=== PATIENT | male | born 1960 | race Caucasian/White ===

== ENCOUNTER → 2020-11-14 | Outpatient (CLI) | payer OTHER ==
[~2020-11-14] MED LIST: ABILIFY 5 MG TAB5 MG PO; ALDACTONE 25MG25 MG PO; ASPIRIN81 MG PO; ATORVASTATIN CA40 MG PO; BUPRENORPHIN-N1 EACH SL; CLOPIDOGREL75 MG PO; COZAAR 50MG TAB50 MG PO; DIGOXIN125 MCG PO; GABAPENTIN800 MG PO; IBUPROFEN600 MG PO; IPRAT-ALBUT 0.5-3 ML NEB; KEPPRA 500 MG500 MG PO; KEPPRA750 MG PO; LASIX20 MG PO; LORTAB 7.5-3251 EACH PO; MEDROL DOSEPAK 24 MG PO; MEDROL4 MG PO; MYCOSTATIN CREA15 GM TOP; NAPROSYN500 MG PO; NEURONTIN800 MG PO; PLAQUENIL 200200 MG PO; PREDNISONE10 MG PO; PREDNISONE5 MG PO; PROVENTIL HFA6.7 GM INH; PULMICORT FLEX90 MCG INH; SUBOXONE 8 MG-1 EACH SL; TOPROL XL 50 MG50 MG PO; TRAZODONE HCL100 MG PO; ULTRAM50 MG PO; VITAMIN D31000 UNI1 PO
== END ==
LOC: CT 08:03
DX: R93.89 Abnormal findings on diagnostic imaging of other specified body structures (principal); R91.8 Other nonspecific abnormal finding of lung field; J18.9 Pneumonia, unspecified organism; J98.11 Atelectasis
CPT/HCPCS: 36415; 71260; 82565; Q9963

== ENCOUNTER 2020-12-10 16:56 | Emergency (ER) | payer OTHER ==
[~2020-12-10 16:56] MED LIST changes: -ULTRAM50 MG PO
[2020-12-10] MEDS ORDERED: ULTRAM50 MG PO (18:41)
== END 2020-12-10 19:25 | disposition home or self-care (01) ==
LOC: ER1 16:56
DX: M25.552 Pain in left hip (principal)
CPT/HCPCS: 73502; 81001; 87086; 96372; 99283; J1170

== ENCOUNTER 2021-07-11 15:35 | Emergency (ER) | payer OTHER ==
[~2021-07-11 15:35] MED LIST changes: +ULTRAM50 MG PO
[2021-07-11 18:23] LABS: HEMOGLOBIN 12.8 gm/dl (14.0-17.5); RED BLOOD COUNT 4.16 M/UL (4.20-5.50); WHITE BLOOD COUNT 7.8 K/UL (4.5-11.0)
[2021-07-11 18:45] LABS: BUN/CREATININE RATIO 25 (0-10)
[2021-07-11] MEDS ORDERED: PREDNISONE 10 M10 MG PO (23:22)
[2021-07-11] MEDS ORDERED: IPRAT-ALBUT 0.5-3 ML INH (23:36)
== END 2021-07-11 23:47 | disposition home or self-care (01) ==
LOC: ER1 15:35
PROVIDERS: Physician Assistant Medical
DX: M06.872 Other specified rheumatoid arthritis, left ankle and foot (principal); C34.90 Malignant neoplasm of unspecified part of unspecified bronchus or lung; M06.871 Other specified rheumatoid arthritis, right ankle and foot; M06.831 Other specified rheumatoid arthritis, right wrist; M25.59 Pain in other specified joint; M06.8A Other specified rheumatoid arthritis, other specified site; F17.210 Nicotine dependence, cigarettes, uncomplicated; I25.2 Old myocardial infarction; J44.9 Chronic obstructive pulmonary disease, unspecified; Z20.822 Contact with and (suspected) exposure to COVID-19
CPT/HCPCS: 0240U; 71045; 80053; 84550; 85025; 85652; 86140; 94664; 96374; 96375; 99284; J1885; J2930

== ENCOUNTER 2021-07-31 13:01 | Inpatient (IN) | payer OTHER ==
[~2021-07-31] VITALS: Ht 185.4 cm; Wt 74.8 kg
[~2021-07-31 13:01] MED LIST changes: -BUPRENORPHIN-N1 EACH SL; +IPRAT-ALBUT 0.5-3 ML INH; +PREDNISONE 10 M10 MG PO
[2021-07-31 19:26] LABS: BUN/CREATININE RATIO 33 (0-10)
[2021-07-31 19:30] LABS: HEMOGLOBIN 12.6 gm/dl (14.0-17.5); RED BLOOD COUNT 4.14 M/UL (4.20-5.50); WHITE BLOOD COUNT 7.1 K/UL (4.5-11.0)
[2021-08-01] MEDS ORDERED: BUPRENORPHIN-N1 EACH SL (01:42)
[2021-08-01 05:42] LABS: HEMOGLOBIN 12.4 gm/dl (14.0-17.5); RED BLOOD COUNT 4.11 M/UL (4.20-5.50); WHITE BLOOD COUNT 5.4 K/UL (4.5-11.0)
[2021-08-01 05:59] LABS: BUN/CREATININE RATIO 26 (0-10)
[2021-08-01] MEDS ORDERED: IBUPROFEN800 MG PO (12:57)
[2021-08-01] MEDS ORDERED: ASPIRIN CHEWABL81 MG PO (12:57)
[2021-08-01] MEDS ORDERED: IPRAT-ALBUT 0.5-3 ML INH (12:58)
[2021-08-01] MEDS ORDERED: PROAIR HFA8.5 GM INH (12:58)
--- NOTE | 2021-08-01 13:51 | NUR ---
DR. BARAJAS INFORMED RN THAT PATIENT COULD HAVE TELEMETRY REMOVED WHENHE WENT TO GET HIS MRI DONE.
[2021-08-02 04:57] LABS: HEMOGLOBIN 13.2 gm/dl (14.0-17.5); RED BLOOD COUNT 4.34 M/UL (4.20-5.50); WHITE BLOOD COUNT 5.3 K/UL (4.5-11.0)
[2021-08-02 05:17] LABS: BUN/CREATININE RATIO 17 (0-10)
[2021-08-03 05:39] LABS: HEMOGLOBIN 13.7 gm/dl (14.0-17.5); RED BLOOD COUNT 4.49 M/UL (4.20-5.50)
[2021-08-03 05:50] LABS: WHITE BLOOD COUNT 6.7 K/UL (4.5-11.0)
[2021-08-03 06:03] LABS: BUN/CREATININE RATIO 22 (0-10)
[2021-08-04 08:04] LABS: RED BLOOD COUNT 4.61 M/UL (4.20-5.50); WHITE BLOOD COUNT 6.3 K/UL (4.5-11.0)
[2021-08-04 08:57] LABS: BUN/CREATININE RATIO 28 (0-10)
[2021-08-05 05:49] LABS: RED BLOOD COUNT 3.94 M/UL (4.20-5.50); WHITE BLOOD COUNT 4.4 K/UL (4.5-11.0)
[2021-08-05 06:16] LABS: BUN/CREATININE RATIO 26 (0-10)
--- NOTE | 2021-08-05 16:01 | NUR ---
PT MOVES AROUND AND DECLINED HIS SCUDS.
[2021-08-06 06:40] LABS: HEMOGLOBIN 12.2 gm/dl (14.0-17.5); RED BLOOD COUNT 4.01 M/UL (4.20-5.50); WHITE BLOOD COUNT 3.9 K/UL (4.5-11.0)
[2021-08-06 07:15] LABS: BUN/CREATININE RATIO 22 (0-10)
[2021-08-08 07:29] LABS: BUN/CREATININE RATIO 19 (0-10)
[2021-08-08] MEDS ORDERED: CEFEPIME 22 GM/100 M IV (09:19)
[2021-08-08] MEDS ORDERED: VANCOMYCIN1.25 GM/12 IV (09:19)
== END 2021-08-08 12:54 | disposition home or self-care (01) | DRG 552 ==
LOC: ER1 13:01 → CDU 20:52 → MED SURG 4 20:52
PROVIDERS: Emergency Medicine; Internal Medicine; Physician Assistant; ADMIT Internal Medicine
PROC: 02HV33Z Insertion of Infusion Device into Superior Vena Cava, Percutaneous Approach (ICD-10-PCS; principal; 2021-08-07)
PROC: B548ZZA Ultrasonography of Superior Vena Cava, Guidance (ICD-10-PCS; 2021-08-07)
DX: M46.47 Discitis, unspecified, lumbosacral region (principal); S32.039A Unspecified fracture of third lumbar vertebra, initial encounter for closed fracture; S32.10XA Unspecified fracture of sacrum, initial encounter for closed fracture; Z20.822 Contact with and (suspected) exposure to COVID-19; F11.20 Opioid dependence, uncomplicated; E87.1 Hypo-osmolality and hyponatremia; S32.049A Unspecified fracture of fourth lumbar vertebra, initial encounter for closed fracture; S32.059A Unspecified fracture of fifth lumbar vertebra, initial encounter for closed fracture; I25.10 Atherosclerotic heart disease of native coronary artery without angina pectoris; F17.210 Nicotine dependence, cigarettes, uncomplicated; M46.46 Discitis, unspecified, lumbar region; B19.20 Unspecified viral hepatitis C without hepatic coma; M19.90 Unspecified osteoarthritis, unspecified site; J44.9 Chronic obstructive pulmonary disease, unspecified; M06.9 Rheumatoid arthritis, unspecified; Z79.01 Long term (current) use of anticoagulants; Z79.82 Long term (current) use of aspirin; V29.88XA Motorcycle rider (driver) (passenger) injured in other specified transport accidents, initial encounter; Z80.9 Family history of malignant neoplasm, unspecified; I25.2 Old myocardial infarction; V49.9XXA Car occupant (driver) (passenger) injured in unspecified traffic accident, initial encounter
CPT/HCPCS: 36415; 72125; 72128; 72131; 72148; 72170; 73030; 80048; 80053; 80202; 80307; 85025; 85027; 85652; 86140; 87040; 94640; 94760; 96365; 96366; 96375; 99285; C1751; J0692; J1650; J1885; J2543; J3370; J7030; J7070; U0002

== ENCOUNTER 2021-12-03 10:50 | Emergency (ER) | payer OTHER ==
[~2021-12-03] VITALS: Ht 185.4 cm; Wt 74.8 kg
[~2021-12-03 10:50] MED LIST changes: +ASPIRIN CHEWABL81 MG PO; +BUPRENORPHIN-N1 EACH SL; +CEFEPIME 22 GM/100 M IV; +IBUPROFEN800 MG PO; +PROAIR HFA8.5 GM INH; +VANCOMYCIN1.25 GM/12 IV
[2021-12-03 12:05] LABS: HEMOGLOBIN 12.1 gm/dl (14.0-17.5); RED BLOOD COUNT 4.01 M/UL (4.20-5.50); WHITE BLOOD COUNT 7.6 K/UL (4.5-11.0)
[2021-12-03 12:25] LABS: BUN/CREATININE RATIO 25 (0-10)
== END 2021-12-04 02:15 | disposition left against medical advice (07) ==
LOC: ER1 10:50 → CDU 20:11 → ER1 20:11
PROVIDERS: Physician Assistant Medical
DX: M54.50 Low back pain, unspecified (principal); Z79.899 Other long term (current) drug therapy
CPT/HCPCS: 72132; 72158; 80053; 81001; 83605; 85025; 85652; 86140; 87040; 96374; 96375; 99283; A9577; J1885; J2405; J2543; J3370; J7070; Q9967